=== PATIENT | female | born 1965 | race Caucasian/White ===

== ENCOUNTER 2024-12-31 13:54 | Emergency (ER) | payer OTHER, SELFPAY ==
[2024-12-31 13:55] VITALS: BP 87/65; PULSE 72; RESP 22; TEMP 36.4; O2SAT 97; BMI 23.4
[2024-12-31] MEDS: 0.9% Normal Saline (1000mL) 1,000 ML 999 ML IV ×2 (14:00→15:17)
[2024-12-31 14:06] VITALS: BP 129/72; PULSE 58; RESP 13; O2SAT 98
--- NOTE | 2024-12-31 14:12 | EKG12_ITS ---
Test Reason : GENERAL Blood Pressure : */* mmHG Vent. Rate : 64 BPM Atrial Rate : 64 BPM P-R Int : 168 ms QRS Dur : 70 ms QT Int : 436 ms P-R-T Axes : 41 -11 60 degrees QTcB Int : 449 ms Normal sinus rhythm Low voltage QRS Borderline ECG Confirmed by IRIS BUENO, LAUREN ([id number]), pictures editor JAXSON SHANKAR ([id number]) on 01/03/2025 7:54:47 AM Referred By: Confirmed By: LAUREN SIMMONS MD
--- NOTE | 2024-12-31 14:12 | RAD_ITS ---
PROCEDURE: CHEST 1 VIEW (PORTABLE) 12/31/2024 REASON FOR EXAM: WEAKNESS TECHNIQUE: Frontal view of the chest. COMPARISON: None FINDINGS: Hardware: EKG leads overlie the chest Heart: Normal-size Lungs: Clear Bones: Degenerative bony changes Other: RAD/Chest 1 View (Portable) IMPRESSION: No acute pulmonary process Reading Location: [id number]
--- NOTE | 2024-12-31 14:28 | EDS_ITS ---
<Statement entered by Topher Roche DO - 01/06/25 01:33> Patient was seen and examined with physician digital marketing assistant Janet All components of the history and physical confirmed and agreed. History of present illness and physical exam: Patient is a 59-year-old female who presents to the emergency department the chief complaint of nausea and dry heaving that started this morning, she states that yesterday she was feeling well however during the evening she began to feel overall unwell. She states that she did not eat dinner or breakfast as she had no appetite. Patient denies any sick contacts. Review of systems: Agree with above Physical exam: Agree with above [facility] Patient is a 59-year-old female who presents to the emergency department chief complaint of nausea vomiting and not feeling well. On the differential diagnosis includes but not limited to viral gastroenteritis, UTI, electrolyte abnormality. Once the workup is obtained and reviewed she will be reevaluated. Patient CBC reviewed showed no evidence leukocytosis white blood count normal at 4.7, hemoglobin stable 12.3, platelet count 110. Patient sodium normal at 142, potassium normal 4, creatinine normal at 0.86. Patient's AST and ALT were normal at 13 and 7 respectively total bilirubin normal at 0.49. Patient lactic acid was elevated 3.7 however repeat was normal at 1.6. Patient lipase normal at 21, urinalysis showed 500 leukocyte esterase 10-25 white cells with 3+ bacteria she will be treated for a urinary tract infection. Patient's EKG reviewed showed sinus rhythm rate of 64 bpm. Patient was given prescription for Keflex and Zofran. She was vies follow-up with her doctor send and return with worsening symptoms or concerns. She is agreeable to plan all question concerns answered she was discharged home in stable condition. Final impression: Urinary tract infection Nausea and vomiting Generalized weakness Disposition: Patient will be discharged home in stable condition Supervising attending attestation: Topher Roche D.O. [facility] History of Present Illness Chief Complaint: General Illness Narrative Narrative: Patient presenting today due to nausea and dry heaving that started this morning, she reports that yesterday during the day she was feeling okay until yesterday evening when she began to feel fatigued. She did not eat dinner last night or breakfast this morning because she had no appetite. She denies associated abdominal pain, vomiting, stool changes, urinary symptoms, and flulike symptoms. She has a PMH of HTN. PFSH PFS Home Medications ?Medication ?Instructions ?Recorded ?Last Taken ?Type cephalexin 500 mg capsule 500 mg PO Q6 5 days #20 CAPS ULES 12/31/24 Unknown Rx duloxetine 60 mg capsule,delayed 60 mg PO DAILY 12/30/24 History release losartan 50 mg tablet 50 mg PO DAILY 12/31/24 08/0 06/25 History metoprolol succinate 25 mg 25 mg PO DAILY 12/31/2406/25 History tablet,extended release 24 hr ondansetron 4 mg disintegrating 4 mg PO Q8H PRN PRN Na usea #10 tabs 12/31/24 Unknown Rx tablet pregabalin 150 mg capsule 150 mg PO TID 12/31/2412/30 History Allergy/AdvReac Type Severity Reaction Status Date / Time No Known Allergies Allergy Verified 12/31/24 14:05 Social History Smoking Status: Never smoker ROS ROS ED Constitutional Constitutional ED: Reports chills; Denies fever(s) Cardiovascular Cardiovascular: Denies chest pain Respiratory/Chest Respiratory/Chest: Denies cough or dyspnea Gastrointestinal Gastrointestinal: Reports nausea; Denies abdominal pain, diarrhea or vomiting Genitourinary Genitourinary ED: Denies dysuria, hematuria or urinary urgency Musculoskeletal Musculoskeletal: Denies arthralgias or myalgias Integumentary Denies rash Neurologic Neurologic: Denies weakness EXAM Physical Exam Const Vital Signs: 12/31/24 13:55 12/31/24 13:55 12/31/24 14:06 Temperature 97.6 F L Temperature Source Oral Pulse Rate 72 58 L Respiratory Rate 22 H 13 Respiratory Effort Short of Breath Respiratory Pattern Tachypnea Blood Pressure 87/65 L 129/72 H Blood Pressure Mean 72 91 Pulse Ox 97 98 Oxygen Delivery Method Room Air 12/31/24 14:12 12/31/24 15:06 12/31/24 15:57 Temperature 98.7 F Temperature Source Oral Pulse Rate 67 Respiratory Rate 12 Respiratory Effort Respiratory Pattern Blood Pressure 117/67 108/63 Blood Pressure Mean 83 78 Pulse Ox 100 Oxygen Delivery Method Room Air Room Air 12/31/24 15:57 12/31/24 17:00 12/31/24 17:24 Temperature 97.9 F 97.9 F 97.9 F Temperature Source Oral Oral Pulse Rate 71 71 71 Respiratory Rate 16 14 14 Respiratory Effort Respiratory Pattern Blood Pressure 100/58 L 122/65 H 122/65 H Blood Pressure Mean 72 84 84 Pulse Ox 100 100 100 Oxygen Delivery Method Room Air Room Air Positive well nourished, well developed and no apparent distress General Appearance ED: well developed HEENT Reports normocephalic, head/scalp atraumatic and dry mucous membranes Mouth ED: Yes dry mucous membranes Mouth: dry mucous membranes Eyes PERRL and EOMs intact bilaterally Neck full ROM and supple Chest Wall inspection of chest normal Resp normal respiratory effort and clear to auscultation bilaterally Cardio regular rate and regular rhythm GI soft to palpation, non-distended and no masses GI Narrative: Minimal tenderness across the lower abdomen, no rigidity or guarding Back/Spine normal ROM and normal to inspection Extremity normal to inspection and full ROM Neuro oriented x3, CN's II-XII intact bilaterally, moves all extremities, no focal motor deficits and no sensory deficits noted Sensorium / Orientation: awake and alert Psych mental status grossly normal and thought process normal Skin no rashes or lesions noted and no wounds MDM MDM MDM Narrative Medical decision making narrative: Patient presenting today due to nausea, dry heaving, and fatigue that started ye evening. She does appear significantly dry and will be given IV fluids. She did have minimal tenderness across her lower abdomen on exam but denies having any abdominal pain to necessitate need for abdominal imaging. Given she initially was hypotensive, sepsis labs were initiated, her CBC, CMP, and lipase are largely unremarkable. Her UA does reveal 500 leukocytes, 10-25 WBCs and 3+ bacteria but also reveals 25-50 squamous cells. This will be cultured and she will be treated with antibiotics. Lactic acid did come back elevated at 3.7. She was given additional IV fluids and repeat lactic acid is WNL. On reexamination she is feeling improved, she is tolerating p.o. fluids, she has had no vomiting here. I will give her prescriptions for Keflex and Zofran. I recommended that she have close follow-up with her PCP and return instructions were discussed with her. She will be discharged home in stable condition. Lab Data Attestation: I reviewed the patient's lab results. Labs: Laboratory Results - last 24 hr 12/31/24 12/31/24 12/31/24 14:24 15:10 16:25 WBC 4.7 RBC 3.91 L Hgb 12.3 Hct 35.4 L MCV 90.5 MCH 31.5 MCHC 34.7 RDW Std Deviation 40.6 RDW Coeff of Lisette 12.2 Plt Count 110 L MPV 9.2 Immature Gran % (Auto) 0.200 Neut % (Auto) 83.3 H Lymph % (Auto) 11.9 L Emery % (Auto) 3.8 Eos % (Auto) 0.4 Baso % (Auto) 0.4 Absolute Neuts (auto) 3.9 Absolute Lymphs (auto) 0.56 L Nucleated RBC % 0 PT 13.6 INR 1.0 APTT 27.0 Sodium 142 Potassium 4.0 Chloride 111 H Carbon Dioxide 18.8 L Anion Gap 12 BUN 14 Creatinine 0.86 Estim Creat Clear Calc 54.33 Est GFR (MDRD) Non-Af 76 BUN/Creatinine Ratio 15.9 Glucose 186 H Lactic Acid 3.7 H* 1.6 Calcium 8.6 Total Bilirubin 0.49 AST 13 ALT 7 Alkaline Phosphatase 54 Total Protein 5.3 L Albumin 3.7 Globulin 1.7 L Albumin/Globulin Ratio 2.2 Lipase 21 Urine Color Yellow Urine Clarity Cloudy Urine pH 6.0 Ur Specific Stryker 1.020 Urine Protein 30 H Urine Glucose (UA) 50 H Urine Ketones 50 H Urine Occult Blood 10 H Urine Nitrite Negative Urine Bilirubin Negative Urine Urobilinogen Normal Ur Leukocyte Esterase 500 H Urine RBC 0-5 SEEN Urine WBC 10-25 SEEN Ur Squamous Epith Cells 25-50 SEEN Urine Bacteria 3+ Urine Mucus 0 SEEN Radiography X-Ray: Read by ED Physician Diagnostic Testing: Clinical Impression(s) from Imaging Studies Chest X-Ray 12/31/24 14:12 IMPRESSION: No acute pulmonary process Reading Location: [facility] EKG Initial EKG: Comments: 64 bpm, normal sinus rhythm, no ST elevation, interpreted by attending ED physician Discharge Plan Triage Chief Complaint: General Illness ED Midlevel Provider: Adela Schwab ED Provider: Topher Roche Dx/Rx/DC Orders Clinical Impression: UTI (urinary tract infection), Nausea, Weakness Instructions: UTIs, ED Vomiting (Adult), ED Weakness Uncertain Cause Prescriptions: New cephalexin 500 mg capsule 500 mg PO Q6 5 Days Qty: 20 0RF ondansetron 4 mg tablet,disintegrating 4 mg PO Q8H PRN PRN (Reason: Nausea) Qty: 10 0RF No Action losartan 50 mg tablet 50 mg PO DAILY metoprolol succinate 25 mg tablet extended release 24 hr 25 mg PO DAILY duloxetine 60 mg capsule,delayed release(DR/EC) 60 mg PO DAILY pregabalin 150 mg capsule 150 mg PO TID Primary Care Provider: HORACIO PINA Referrals: NOT,DEFINED [Non-Staff] - Activity Restrictions/Additional Instructions: Follow-up with your PCP in the next 3 to 5 days and return for any worsening symptoms or if you have any other concerns. Print Language: Swedish Disposition Disposition: Home, Self Care Discharge Date/Time: 12/31/24 17:49
[2024-12-31 14:34] LABS: Hematocrit 35.4 % (37-47); Hemoglobin 12.3 g/dL (12.0-15.0); Immature Granulocytes Count 0.010 X10^3/uL (0.0-0.0); Mean Corp Hgb Conc 34.7 g/dL (32-36); Mean Corpuscular Volume 90.5 fL (81-99); Mean Platelet Vol. 9.2 fl (6.2-12.0); NRBC Flagged by Analyzer 0 % (0-5); POSITIVE DIFFERENTIAL YES; Platelet Count 110 K/mm3 (150-450); RBC Distribution Width CV 12.2 % (11.6-14.6); RBC Distribution Width SD 40.6 fl (35.1-43.9); Red Blood Count 3.91 M/mm3 (4.2-5.4); White Blood Count 4.7 K/mm3 (4.4-11.0)
[2024-12-31 14:48] LABS: Prothrombin Time (Protime)PT. 13.6 SECONDS (11.7-14.9)
[2024-12-31 15:00] LABS: AST(SGOT) 13 U/L (<=31); Alanine Aminotransfer ALT/SGPT 7 U/L (<=34); Albumin, Serum 3.7 g/dL (3.4-4.8); Alkaline Phosphatase 54 U/L (35-104); Anion Gap 12 (5-15); BUN 14 mg/dL (4-19); BUN/Creat Ratio 15.9 RATIO (10-20); Calcium,Total 8.6 mg/dL (7.6-11.0); Carbon Dioxide 18.8 mmol/L (21.0-32.0); Chloride 111 mmol/L (98-108); Estimated Creatinine Clearance 54.33 ml/min (50-250); Globulin 1.7 g/dL (2.2-4.2); Glucose 186 mg/dL (70-99); Lipase 21 U/L (13-75); Potassium 4.0 mmol/L (3.3-5.1)
[2024-12-31 15:06] VITALS: BP 117/67; PULSE 67; RESP 12; TEMP 37.1; O2SAT 100
[2024-12-31 15:06] LABS: Partial Thromboplast Time 27.0 Seconds (24.1-36.2)
[2024-12-31 15:24] LABS: Mucous, Urine 0 SEEN /hpf (<or=2+)
[2024-12-31 15:34] LABS: Color, Urine Yellow (Yellow); Glucose, Dipstick 50 mg/dl (Normal); Ketone-Dipstick 50 mg/dl (Negative); Leukocyte Esterase-Dipstick 500 /ul (Negative); Nitrite-Dipstick Negative (Negative); Occult Blood-Urine 10 /ul (Negative); Protein-Dipstick 30 mg/dl (Negative); Specific Gravity, Urine 1.020 (1.002-1.030); Urine Bilirubin Dipstick Negative (Negative)
[2024-12-31 15:57] VITALS: BP 100/58; BP 108/63; PULSE 71; RESP 16; TEMP 36.6; O2SAT 100
[2024-12-31 15:59] LABS: Squamous Epithelial Cells - UA 25-50 SEEN /hpf (5-10)
[2024-12-31 16:01] LABS: Red Blood Cells-Urine 0-5 SEEN /hpf (0-5)
[2024-12-31 17:00] VITALS: BP 122/65; PULSE 71; RESP 14; TEMP 36.6; O2SAT 100
[2024-12-31 17:24] VITALS: BP 122/65; PULSE 71; RESP 14; TEMP 36.6; O2SAT 100
[2024-12-31 18:29] LABS: Reflex Lactate? Y
== END 2024-12-31 17:49 | disposition home or self-care (01) ==
PROVIDERS: Physician Assistant; Emergency Provider Emergency Medicine; Visit Provider Emergency Medicine
DX: R53.1 Weakness (principal); N39.0 Urinary tract infection, site not specified; I10 Essential (primary) hypertension; Z79.899 Other long term (current) drug therapy; R11.2 Nausea with vomiting, unspecified
CPT/HCPCS: 71045; 80053; 81001; 83605; 83690; 85025; 85610; 85730; 87040; 87086; 87088; 93005; 96361; 96365; 99285; A4216